=== PATIENT | female | born 1960 | race Caucasian/White ===

== ENCOUNTER 2022-03-02 11:33 | Inpatient (IN) ==
[2022-03-02] MEDS ORDERED: Albuterol/Ipratropium NEB.SOL (2.5/0.5 MG) 3 ML NEB.SOLN INH ONE (11:42)
[2022-03-02] MEDS ORDERED: methylPREDNISolone SOD SUCC 125 mg 2 ML VIAL IV ONE (11:42)
[2022-03-02] MEDS ORDERED: Lactated Ringers 1000 ml BAG 1,000 ML IV ONE (11:56)
[2022-03-02 12:16] LABS: Hematocrit 32 % (35-47); Hemoglobin 10.7 g/dL (12.0-16.0); Mean Corpuscular HGB Conc 33 g/dL (31-36); Mean Corpuscular Hemoglobin 30 pg (27-31); Mean Corpuscular Volume 90 fL (80-97); Mean Platelet Volume 9.2 fL (7.4-10.4); Platelet Count 301 10^3/uL (150-450); Red Blood Count 3.58 10^6 /uL (3.70-4.87); Red Cell Distribution Width 15 % (10-15); White Blood Count 12.4 10^3/uL (3.5-10.8)
[2022-03-02 12:39] LABS: ABS Basophils 0.1 10^3/ul (0-0.2); ABS Eosinophils 0.1 10^3/ul (0-0.6); ABS Lymphocytes 1.2 10^3/ul (1.0-4.8); Eosinophil % 0.4 %; Lymphocyte % 9.5 %; Nucleated Red Blood Cells % 0.1
[2022-03-02 12:50] LABS: Albumin 3.8 g/dL (3.2-5.2); Albumin/Globulin Ratio 1.2 (1-3); C Reactive Protein 221.08 mg/L (<8.01); Calcium 8.9 mg/dL (8.6-10.3); Creatinine, Serum 0.84 mg/dL (0.51-0.95); Globulin 3.2 g/dL (2-4); Potassium 4.1 mmol/L (3.5-5.0); Total Bilirubin 0.9 mg/dL (0.2-1.0); eGFR CKD-EPI 78.5 (>60)
[2022-03-02] MEDS ORDERED: guaiFENesin DM SUGAR FREE 100 MG/10 MG 5 ML UDC PO ONE (13:28)
[2022-03-02] MEDS ORDERED: Iohexol 350 (CONTRAST) 500 ML MDV IV ONE (13:35)
[2022-03-02] MEDS ORDERED: Piperacillin/Tazobac ADVAN 3.375 GM in NS 0.9% 100 ml BAG 100 ML IV ONE (14:47)
[2022-03-02] MEDS ORDERED: Azithromycin 500 mg/250 mL NS IVPB ONE (17:00)
[2022-03-02] MEDS: Enoxaparin 40 MG/0.4 ML SYR SUBCUT SCH (17:43)
[2022-03-02] MEDS ORDERED: cefTRIAXone 1 gm/50 mL D5W 1 GM/50 ML BAG IV SCH (20:00)
[2022-03-02] MEDS: guaiFENesin 100 mg/5 ml LIQ unit dose cup PO PRN (21:16)
[2022-03-03] MEDS: guaiFENesin 100 mg/5 ml LIQ unit dose cup PO PRN (04:41)
[2022-03-03 06:21] LABS: Hematocrit 28 % (35-47); Hemoglobin 9.5 g/dL (12.0-16.0); Mean Corpuscular HGB Conc 34 g/dL (31-36); Mean Corpuscular Hemoglobin 30 pg (27-31); Mean Corpuscular Volume 90 fL (80-97); Mean Platelet Volume 9.1 fL (7.4-10.4); Platelet Count 280 10^3/uL (150-450); Red Blood Count 3.12 10^6 /uL (3.70-4.87); Red Cell Distribution Width 15 % (10-15); White Blood Count 11.8 10^3/uL (3.5-10.8)
[2022-03-03 06:41] LABS: ABS Lymphocytes 0.7 10^3/ul (1.0-4.8); ABS Monocytes 1.1 10^3/ul (0-0.8); ABS Neutrophils 9.9 10^3/ul (1.5-7.7); Lymphocyte % 6.3 %; Nucleated Red Blood Cells % 0.1
[2022-03-03 06:59] LABS: Calcium 8.9 mg/dL (8.6-10.3); Creatinine, Serum 0.67 mg/dL (0.51-0.95); Potassium 4.6 mmol/L (3.5-5.0); eGFR CKD-EPI 98.8 (>60)
[2022-03-03] MEDS ORDERED: Lidocaine PATCH 5% PATCH TRANSDERM SCH (09:00)
[2022-03-03] MEDS ORDERED: Aspirin EC 81 mg TAB.EC (enteric coated) PO SCH (09:00)
[2022-03-03 15:02] VITALS: BP 101/64
[2022-03-03] MEDS: Enoxaparin 40 MG/0.4 ML SYR SUBCUT SCH (16:15)
== END 2022-03-03 18:05 | disposition home or self-care (01) | DRG 133 ==
LOC: EDHOLD 11:33 → ED 11:33 → EDHOLD 15:54 → MED 16:26
PROVIDERS: ADMIT Internal Medicine; ATTEND Internal Medicine